=== PATIENT | male | born 1965 | race African-American/Black ===

== ENCOUNTER 2020-05-24 08:12 | Outpatient (REF) | payer OTHER, SELFPAY ==
--- NOTE | 2020-05-24 15:03 | FL_ITS ---
EXAMINATION: XR FLUOROSCOPY WITH IMAGES CLINICAL INFORMATION: M53.3 - Sacrococcygeal disorders, not elsewhere classified COMPARISON: Lumbar radiographs 03/04/2020 TECHNIQUE: Fluoroscopy performed by Nallely Keyes NP. Fluoroscopy time: 0.4 minutes DAP: 4.20 Gycm2 Images: 2 FINDINGS: There are spinal needles overlying outer aspect left L4 and L5 neural foramina. There is contrast in the nerve sheaths. No visible vascular communication. Degenerative changes again noted lower lumbar spine. FL/FL guidance in treatment room IMPRESSION: Fluoroscopy for pain management procedures.
== END 2020-05-24 08:13 | disposition home or self-care (01) ==
LOC: HO.RADIR 08:12
PROVIDERS: PCP Internal Medicine; Visit Provider Anesthesiology
DX: M53.3 Sacrococcygeal disorders, not elsewhere classified (principal)
CPT/HCPCS: 64451; J3300; Q9967

== ENCOUNTER → 2020-05-30 13:33 | Outpatient (BNVA) | payer OTHER, SELFPAY | PROVIDERS: PCP Internal Medicine; Visit Provider Anesthesiology | DX: Z48.89 Encounter for other specified surgical aftercare (principal); G89.4 Chronic pain syndrome; M53.3 Sacrococcygeal disorders, not elsewhere classified | CPT/HCPCS: 99212 ==

== ENCOUNTER 2020-06-16 12:52 | Outpatient (REF) | payer OTHER, SELFPAY ==
--- NOTE | 2020-06-16 12:54 | XR_ITS ---
EXAMINATION: XR KNEE, BILATERAL XR KNEE, LEFT CLINICAL INFORMATION: Left knee pain COMPARISON: 04/20/2020 TECHNIQUE: AP standing view of both knees. Lateral and sunrise views of the left knee. FINDINGS: Left knee: No acute fracture or subluxation. Compartmental joint spaces are maintained. Small marginal osteophytes at the medial compartment. No joint effusion. The soft tissues are unremarkable. Right knee: No fracture or subluxation. Alignment is appropriate on this frontal view. XR/XR knee standing BI IMPRESSION: Mild degenerative change of the medial compartment of the left knee. Similar to prior.
--- NOTE | 2020-06-16 12:54 | XR_ITS ---
EXAMINATION: XR KNEE, BILATERAL XR KNEE, LEFT CLINICAL INFORMATION: Left knee pain COMPARISON: 04/20/2020 TECHNIQUE: AP standing view of both knees. Lateral and sunrise views of the left knee. FINDINGS: Left knee: No acute fracture or subluxation. Compartmental joint spaces are maintained. Small marginal osteophytes at the medial compartment. No joint effusion. The soft tissues are unremarkable. Right knee: No fracture or subluxation. Alignment is appropriate on this frontal view. XR/XR knee LT 2V IMPRESSION: Mild degenerative change of the medial compartment of the left knee. Similar to prior.
== END 2020-06-16 12:53 | disposition home or self-care (01) ==
LOC: HO.HOSX 12:52
PROVIDERS: Visit Provider Orthopaedic Surgery
DX: M17.12 Unilateral primary osteoarthritis, left knee (principal); M25.462 Effusion, left knee
CPT/HCPCS: 73560; 73565

== ENCOUNTER 2020-08-19 11:44 | Day surgery (SDC) | payer BC, SELFPAY ==
[2020-08-15 13:13] VITALS: BMI 25.8
--- NOTE | 2020-08-18 13:24 | P.CONAN_ITS ---
Documented by User: Glo Laureano 08/18/20 13:25 HPI - Anesthesia Eval Consult details Narrative: 54yo M for Sacroiliac [facility] Past Medical History Medical History Chronic pain syndrome Left knee pain Family History Family History Father No problems noted. Mother Cancer Surgical History Surgical History H/O colonoscopy Social History Social History Smoking Status: Never smoker Second Hand Smoke Exposure: No Use of substances other than those prescribed or required for medical reasons: No Advance Directives: No Advance Directives Information Provided: No Advance Directives on File: No Current occupation: [employer] Meds Allergies Allergy/AdvReac Type Severity Reaction Status Date / Time No Known Drug Allergies Allergy Mild NONE Verified 08/19/20 13:11 [NO KNOWN DRUG ALLERGIES] Exam Exam Date and Time: August 18, 2020 1324 Height,Weight and Vital Signs: Height 5 ft 6 in Weight 72.575 kg Assessment and Plan Assessment Anesthesia Assessment: Chart Reviewed Documented by User: Sabine Olivas 08/19/20 14:51 [facility] Past Medical History Medical History Chronic pain syndrome Left knee pain Family History Family History Father No problems noted. Mother Cancer Surgical History Surgical History H/O colonoscopy Social History Social History Smoking Status: Never smoker Second Hand Smoke Exposure: No Use of substances other than those prescribed or required for medical reasons: No Advance Directives: No Advance Directives Information Provided: No Advance Directives on File: No Current occupation: [employer] Meds Allergies Allergy/AdvReac Type Severity Reaction Status Date / Time No Known Drug Allergies Allergy Mild NONE Verified 08/19/20 13:11 [NO KNOWN DRUG ALLERGIES] Exam Airway Mallampati Class: II TM Dist: >3cm Neck ROM: Full Heart: RRR Lungs: CTA Assessment and Plan Assessment Anesthesia Assessment: Anesthesia Plan Discussed and Chart Reviewed Final Anesthetic Review NPO: Yes ASA Class: II Final Preanesthetic Review: Meds/Allgs Chart Reviewed, Consent Obtained/Reviewed and Anes Risks/Benef Reviewed Patient Risk: Low Procedure Risk: Intermediate Anesthetic Plan Anesthetic Plan: GA
[2020-08-19] VITALS (8 sets, daily range): BP systolic 132–157; BP diastolic 85–107; PULSE 68–94; RESP 16–18; TEMP 36.6–36.7; O2SAT 97–100
--- NOTE | 2020-08-19 09:19 | FL_ITS ---
EXAMINATION: XR FLUOROSCOPY WITH IMAGES CLINICAL INFORMATION: Left sacral pain. COMPARISON: Lumbar spine radiofrequency ablation 05/24/2020 TECHNIQUE: Fluoroscopy performed by Jayson Dang. Fluoroscopy time: 0.9 minutes DAP: 6.75 mGycm2 Images: 5 FINDINGS: There are needles positioned to left of L5, S1, S2 and S4 transverse processes for radiofrequency ablation. No gross bony abnormality seen. The SI joints are symmetrical and normal. FL/FL guidance in OR IMPRESSION: Fluoroscopy was provided to Dr. Jayson Cook for radiofrequency ablation of left lumbosacral spine
[2020-08-19] MEDS: Lactated Ringers 1,000 ML 100 ML IVCONT (13:13)
--- NOTE | 2020-08-19 14:02 | MHC.SHP ---
Pre-Procedural Eval Section A The patient is an INPATIENT: No The History & Physical has been completed within 30 days and I have reviewed it.: No Section B Chief Complaint: sacroccygeal disorder,sacroiliitis, Details of Present Illness: As above Relevant Family History (Specify if Yes): No Relevant Social History: None Present Medications: see Short Stay Collaborative assessment Medical History: No relevant PMH History of Previous Operations: No relevant previous surgery Allergies: Allergies Allergy/AdvReac Type Severity Reaction Status Date / Time No Known Drug Allergies Allergy Mild NONE Verified 08/19/20 13:11 [NO KNOWN DRUG ALLERGIES] Review of Systems Sugical H&P ROS: Negative: Constitution, Cardiovascular, Respiratory, Neurological, Psychiatric, Hem-Onc, Allergic/Immunologic, Gastrointestinal, Genitourinary, Musculoskeletal, Integumentary, Endocrine and Eyes/Ears/Nose/Throat Exam Surgical H&P Exam: Normal: HEENT, Normal: Heart, Normal: Lungs, Normal: Extremities, Normal: Abdomen, Normal: Skin and Normal: Neurological Plan Diagnosis/Plan: Unchanged I have reviewed the history and physical and performed a pertinent physical examination on my patient. No changes have occurred unless specified.
--- NOTE | 2020-08-19 15:22 | PM.OP ---
Brief Operative Note Date of Service: 08/19/20 Pre-op diagnosis: Sacroiliitis Post-op diagnosis: same Procedure: Radiofrequency ablation of innervation of the left sacroiliac joint. Implants: None Surgeon: Jayson Cook MD Anesthesia: MAC Estimated blood loss (mL): 10 Pathology: none sent Condition: stable Disposition: PACU
--- NOTE | 2020-08-19 15:23 | P.OP_ITS ---
Operative Note Operative Note Date of Service: 08/19/20 Narrative: Sonu is very pleasant 54 years old gentleman who is suffering from sacroiliitis on the left. He had successful trial of sacroiliac joint innervation injection about 7 months ago and today he came to the operating room to perform radiofrequency ablation of sacroiliac joint innervation. Risks and benefits were explained to the patient, the risks were involving peripheral nerve damage bleeding infection. Informed consent was obtained. Antibiotics were not administered. Patient went to the operating room and he was positioned prone on operating table. [employer] monitors were placed patient was deeply sedated. His lower back and upper buttocks were prepped with ChloraPrep and draped with utility tells. Sterilely draped C-arm was brought over the operating field and sq picture of L5 vertebra and sacral bone were delineated on the screen. The point of interests were delineated as connection of superior articular process of L5 with transverse process of L5 on the left, connection of superior articular process of S1 with sacral alae on the as well as lowest point of sacroiliac joint projection of the sacral bone also on the left. 100 mm radiofrequency cannulas were driven to were the point of interest in tunnel vision fashion after the skin was injected with lidocaine 2%. When needles gently contacted the bones of the testing of the motor stimulation was performed and no significant stimulation of the lower extremity muscles were noted. After that the radiofrequency cannulas were injected with small amount of lidocaine mixture with bupivacaine 1-1 with small addition of Kenalog. After that the energy of 90 degree centigrade was applied to each cannula location after that the cannulas rotated 180? and another energy application of 90 degree centigrade for another 90 minutes was applied. After that the distance between the needle in the position of dorsal ramus L5 nerve and lowest point of the sacroiliac joint were divided between 12 radiofrequency cannulas inserted by 4 cannulas at that time. Radiofrequency cannulas were driven to the sacral bone in close proximity of sacroiliac joint in palisade fashion. Each time the needles were tested for motor function and no motor response from lower extremity of the patient was found. After that each time needle was injected with small amount of mixture of lidocaine and bupivacaine 1-1 with minimal addition of Kenalog and energy was applied to each cannula location 90 degree centigrade for 90 minutes. Each time the cannulas were rotated 180? and again up application of the energy the same time the same degrees was repeated. Upon completion of the energy applications needles were removed and sterile dressing was applied. Patient tolerated procedure well. He was taking outside of the operating room to recovery room where he recovered uneventfully.
--- NOTE | 2020-08-19 15:45 | PC.NURSE ---
monitoring bp closely remains elevated 154/102 Dr. Olivas at bedside plan to ordere labatolol. This RN will administer when ordered.
[2020-08-19] MEDS: Labetalol HCL 100 MG/20 ML VIAL IVPUSH (15:49)
--- NOTE | 2020-08-19 16:10 | HO.POSTANES ---
Post Anesthesia Evaluation Post Anesthesia Evaluation Vital Signs: Vital Signs Temp Pulse Resp BP Pulse Ox 08/19/20 16:00 68 18 157/106 H 99 08/19/20 15:53 68 17 142/95 H 100 08/19/20 15:49 88 154/102 H 08/19/20 15:35 80 16 156/107 H 99 08/19/20 15:20 97.8 F 86 16 141/104 H 97 08/19/20 12:49 98.0 F 94 18 132/85 98 Anesthesia: Monitored Mental Status: Awake Pain Control: Satisfactory Nausea/Vomiting: None Hydration: Adequate Anesthesia-Related Issues: No Anes. Related Issues
--- NOTE | 2020-08-19 16:51 | PC.NURSE ---
1625 MONITORS AND IV DCD ASST OOB CHAIR STEADY DRESSED SELF PT GIVEN ALL DISCHARGE PAPERWORK AND BPS INCLUDED BA X 3 OVERLAP LOWER LEFT BACK CDI
== END 2020-08-19 16:40 | disposition home or self-care (01) ==
PROVIDERS: PCP Internal Medicine; Visit Provider Anesthesiology
PROC: (CPT 64635; principal; 2020-08-19 13:50)
DX: M46.1 Sacroiliitis, not elsewhere classified (principal); M53.3 Sacrococcygeal disorders, not elsewhere classified; G89.4 Chronic pain syndrome
CPT/HCPCS: 64625; J2250; J3010; J3300

== ENCOUNTER → 2020-11-21 10:55 | Outpatient (BNVA) | payer BC, SELFPAY | PROVIDERS: PCP Internal Medicine; Visit Provider Anesthesiology ==

== ENCOUNTER 2021-03-07 11:57 | Outpatient (REF) | payer BC, SELFPAY ==
[2021-03-07 13:45] LABS: MANUAL DIFF FLAG NO
[2021-03-07 13:48] LABS: Basophils Percent Auto 0.8 % (0-2); Eosinophils Absolute Auto 0.2 X10*3/uL (0.0-0.4); Eosinophils Percent Auto 4.8 % (0-4); Hematocrit 38.6 % (42-52); Hemoglobin 13.5 g/dl (14.0-18.0); Imm Gran Abs Auto 0.01 X10*3/uL (0.00-0.03); Imm Gran Pct Auto 0.2 % (0.0-0.4); Lymphocytes Absolute Auto 1.9 X10*3/uL (1.2-4.9); Lymphocytes Percent Auto 38.6 % (20-40); Mean Corpuscular Hemoglobin 32.3 pg (27.0-33.0); Mean Corpuscular Volume 92.3 fL (80-98); Mean Platelet Volume 10.4 fL (9.4-12.4); Monocytes Absolute Auto 0.5 X10*3/uL (0.1-1.2); Monocytes Percent Auto 11.2 % (2-11); Neutrophils Absolute Auto 2.1 X10*3/uL (2.0-8.3); Neutrophils Percent Auto 44.4 % (45-73); Platelet Count 237 X10*3/uL (160-400); Red Blood Count 4.18 X10*6/uL (4.60-5.80); Red Cell Distribution Width 13.7 % (11.0-16.0); White Blood Count 4.8 X10*3/uL (4.8-10.8)
[2021-03-07 14:04] LABS: Alanine Aminotransferase 21 U/L (0-40); Albumin Level 4.5 g/dL (3.5-5.0); Alkaline Phosphatase 54 U/L (39-117); Anion Gap 13 (12-20); Aspartate Amino Transferase 29 U/L (5-37); Bilirubin Total 0.2 mg/dL (0.0-1.0); Blood Urea Nitrogen 9 mg/dL (9-16); Calcium 9.2 mg/dL (8.4-10.2); Carbon Dioxide 24 mmol/L (22-29); Chloride 107 mmol/L (96-108); Estimated Glomerular Filt Rate > 60; Glucose Random 96 mg/dL (60-115); Potassium 4.1 mmol/L (3.3-5.1); Sodium 140 mmol/L (135-145)
[2021-03-07 14:29] LABS: TSH reflex Free T4 3.33 uIU/mL (0.32-4.0)
[2021-03-07 14:35] LABS: Ethanol < 10 mg/dL
[2021-03-08 16:41] LABS: LDL Cholesterol Direct 105 mg/dL (<100)
== END 2021-03-07 11:58 | disposition home or self-care (01) ==
LOC: HO.HMGCLDS 11:57
PROVIDERS: PCP Internal Medicine; Visit Provider Internal Medicine
DX: E78.9 Disorder of lipoprotein metabolism, unspecified (principal); F10.20 Alcohol dependence, uncomplicated; R10.13 Epigastric pain; J45.998 Other asthma
CPT/HCPCS: 36415; 80053; 82077; 83721; 84443; 85025